=== PATIENT | female | born 1965 | race Caucasian/White ===

== ENCOUNTER 2016-06-10 10:35 | Emergency (ER) | payer OTHER ==
[~2016-06-10 10:35] MED LIST: ALBUTEROL17 GM INH; ALDACTONE25 MG PO; AMITRIPTYLINE100 MG PO; BIRTH CONTROL; DEXATRIM; DICLOFENAC PO; DOXYCYCLINE HY100 M3 PO; IBUPROFEN800 MG PO; KCL PO; LASIX PO; LEVAQUIN PO; MACROBID100 MG DOB; MINIPRESS1 MG PO; PHENERGAN25 MG PO; SEROQUEL300 MG PO; VIT E PO
[2016-06-10 11:14] LABS: URINE SOURCE CLEAN CATCH
[2016-06-10 11:26] LABS: URINE APPEARANCE CLOUDY; URINE BILIRUBIN NEG (NEG); URINE BLOOD 2+ (NEG); URINE COLOR YELLOW; URINE GLUCOSE NEG (NEG); URINE KETONE NEG (NEG); URINE LEUKOCYTE ESTERASE 3+ (NEG); URINE NITRATE NEG (NEG); URINE PH 5.5 (5-8); URINE PROTEIN NEG (NEG); URINE SPECIFIC GRAVITY 1.014 (1.003-1.035); URINE UROBILINOGEN 0.2 MG/DL (NEG)
[2016-06-10 11:29] LABS: CULTURE INDICATED? YES; U HYALINE CASTS AUWI 0-2 /[LPF]; URINE BACTERIA AUWI 1+ (NEGATIVE); URINE SQUAMOUS EPITHELIAL CELL OCC /[HPF]; UWBCS1 AUWI 100-200 (0-5)
== END 2016-06-10 13:26 | disposition home or self-care (01) ==
LOC: CED 10:35
PROVIDERS: Emergency Medicine
DX: N39.0 Urinary tract infection, site not specified (principal); Z88.5 Allergy status to narcotic agent
CPT/HCPCS: 81003; 87086; 87088; 87186; 99282

== ENCOUNTER 2016-11-06 18:42 | Emergency (ER) | payer OTHER ==
[~2016-11-06] VITALS: Ht 165.1 cm; Wt 63.5 kg
[2016-11-06 19:43] LABS: URINE SOURCE CLEAN CATCH
[2016-11-06 19:56] LABS: URINE APPEARANCE CLEAR; URINE BILIRUBIN NEG (NEG); URINE BLOOD NEG (NEG); URINE COLOR YELLOW; URINE GLUCOSE NEG (NEG); URINE KETONE NEG (NEG); URINE LEUKOCYTE ESTERASE TRACE (NEG); URINE NITRATE NEG (NEG); URINE PH 5.5 (5-8); URINE PROTEIN NEG (NEG); URINE SPECIFIC GRAVITY 1.026 (1.003-1.035); URINE UROBILINOGEN 0.2 MG/DL (NEG)
[2016-11-06 19:59] LABS: CULTURE INDICATED? YES; URBCS1 AUWI 0-2 /[HPF] (0-2); URINE BACTERIA AUWI 1+ (NEGATIVE); URINE SQUAMOUS EPITHELIAL CELL OCC /[HPF]
[2016-11-08 22:52] LABS: CHLAMYDIA TRACH Not Detected (Not Detected); N GONOR Not Detected (Not Detected)
== END 2016-11-06 20:35 | disposition home or self-care (01) ==
LOC: CED 18:42 → CFTX 18:42
PROVIDERS: Nurse Practitioner
DX: N39.0 Urinary tract infection, site not specified (principal); J45.909 Unspecified asthma, uncomplicated; K74.60 Unspecified cirrhosis of liver; Z88.5 Allergy status to narcotic agent
CPT/HCPCS: 81003; 84703; 87086; 87491; 87591; 87808; 87905; 99284